=== PATIENT | female | born 1985 | race Caucasian/White ===

== ENCOUNTER → 2017-01-21 | Outpatient (CLI) | payer MEDICAID ==
--- NOTE | 2017-01-21 13:41 | RADIOLOGY REPORT PS360 ---
US PELVIS (NO FETUS) HISTORY: PELVIC PAIN ORDERING PHYSICIAN: Ranjit Emerson MD PATIENT AGE: 31 years COMPARISON: None FINDINGS: Study is technically limited due to patient's body habitus and the inability to perform an endovaginal exam. The uterus is 7 x 3.4 x 5.5 cm. Combined endometrial thickness is 6 mm. Right ovary is 3.8 x 3.2 cm. Left ovary is 4.9 x 3 cm. No adnexal mass or cul-de-sac fluid. IMPRESSION: Grossly unremarkable exam with technical limitations
== END ==
LOC: RAD 01-18 10:30
DX: R10.2 Pelvic and perineal pain (principal)